=== PATIENT | female | born 1995 | race Caucasian/White ===

== ENCOUNTER 2017-03-12 22:33 | Emergency (ER) | payer MEDICAID ==
[~2017-03-12] VITALS: Ht 162.6 cm; Wt 48.1 kg
[2017-03-12 22:40] VITALS: BP_SYST 120
--- NOTE | 2017-03-12 23:12 | NUR ---
Patient AAOx4, ambulatory. No signs of respiratory distress noted. Patient states having pain to left side of chest since earlier today. Patient states pain scale 5/10 with a sharp sensation; patient also states that the pain does not radiate. Patient states pain is only present on inspiration, denies presence of pain on exhalation. Patient denies any other complaints at this time.
--- NOTE | 2017-03-12 23:12 | NUR ---
Placed in room 8 . Placed on flower shop manager, blood pressure machine and pulse oximeter. To gown for exam. Side rails up.
--- NOTE | 2017-03-12 23:20 | NUR ---
ER Dr. Hinojosa at bedside examining patient.
[2017-03-12 23:42] VITALS: BP_SYST 120
--- NOTE | 2017-03-12 23:42 | NUR ---
Patient given written and verbal discharge instructions and verbalizes understanding. ER MD discussed with patient the results and treatment provided. Patient in stable condition. ID arm band removed. Rx of naprosyn given. Patient educated on pain management and to follow up with PMD. Pain Scale 0/10. Opportunity for questions provided and answered.
== END 2017-03-12 23:42 | disposition home or self-care (01) ==
LOC: SED 22:33
DX: M94.0 Chondrocostal junction syndrome [Tietze] (principal)
CPT/HCPCS: 93005; 99283

== ENCOUNTER 2017-12-03 19:00 | Emergency (ER) | payer MEDICAID ==
[~2017-12-03] VITALS: Ht 162.6 cm; Wt 49.9 kg
[2017-12-03 19:00] VITALS: BP_SYST 163
[2017-12-03 20:05] VITALS: BP_SYST 114
== END 2017-12-03 20:05 | disposition home or self-care (01) ==
LOC: SED 19:00
DX: R45.851 Suicidal ideations (principal); F32.9 Major depressive disorder, single episode, unspecified; R03.0 Elevated blood-pressure reading, without diagnosis of hypertension
CPT/HCPCS: 99283

== ENCOUNTER 2018-08-14 03:17 | Emergency (ER) | payer MEDICAID ==
[~2018-08-14] VITALS: Ht 160 cm; Wt 46.3 kg
[2018-08-14 03:21] VITALS: BP_SYST 125
[2018-08-14 04:36] LABS: BASOPHILS # (AUTO) 0.1 K/uL (0.0-0.2); EOSINOPHILS # (AUTO) 0.1 K/uL (0.0-0.4); EOSINOPHILS % (AUTO) 1.4 % (0.0-4.0); HEMATOCRIT 37.1 % (36-48); HEMOGLOBIN 12.6 g/dL (12.0-16.0); LYMPHOCYTES # (AUTO) 2.7 K/uL (1.0-5.5); LYMPHOCYTES % (AUTO) 40.4 % (20.5-51.5); MEAN CORPUSCULAR HEMOGLOBIN 31 pg (27-31); MEAN CORPUSCULAR HGB CONC 34 % (32-36); MEAN CORPUSCULAR VOLUME 93 fL (79.0-98.0); MONOCYTES # (AUTO) 0.7 K/uL (0.0-1.0); MONOCYTES % (AUTO) 10.6 % (1.7-9.3); NEUTROPHILS # (AUTO) 3.1 K/uL (1.8-7.7); NEUTROPHILS % (AUTO) 46.6 % (40.0-70.0); PLATELET COUNT (AUTO) 244 K/uL (130-430); RED CELL DISTRIBUTION WIDTH 12.4 % (9.0-15.0); WHITE BLOOD COUNT (AUTO) 6.6 K/uL (4.8-10.8)
[2018-08-14 04:50] LABS: CALCIUM 9.2 mg/dL (8.4-11.0); CREATININE 0.69 mg/dL (0.55-1.30); POTASSIUM 3.4 mmol/L (3.5-5.1)
[2018-08-14 05:01] LABS: ALBUMIN 3.7 g/dL (3.4-4.8); TOTAL BILIRUBIN 0.8 mg/dL (0.0-1.0)
[2018-08-14 05:50] VITALS: BP_SYST 125
== END 2018-08-14 05:50 | disposition home or self-care (01) ==
LOC: SED 03:17
DX: R07.89 Other chest pain (principal); R68.84 Jaw pain; M79.602 Pain in left arm
CPT/HCPCS: 36415; 71046-TC; 80053; 81025; 84484; 85025; 93005; 99284

== ENCOUNTER 2019-01-14 10:07 | Emergency (ER) | payer MEDICAID ==
[~2019-01-14] VITALS: Ht 160 cm; Wt 45.4 kg
[2019-01-14 10:07] VITALS: BP_SYST 143
--- NOTE | 2019-01-14 10:07 | NUR ---
BROUGHT BACK TO BED #3 AND TRIAGED. REPORT GIVEN TO REANNA
--- NOTE | 2019-01-14 10:15 | NUR ---
Pt c/o metal rack hitting her head twice, states no pain currently. Pt states not losing consciousness but had n/v. No obvious deformities noted. No other complaints or injuries per pt or noted.
--- NOTE | 2019-01-14 10:30 | NUR ---
ER Dr. Briones at bedside examining patient.
[2019-01-14 11:10] VITALS: BP_SYST 143
--- NOTE | 2019-01-14 11:24 | NUR ---
Patient given written and verbal discharge instructions and verbalizes understanding. ER MD discussed with patient the results and treatment provided. Patient in stable condition. ID arm band removed. No Rx given. Patient educated on pain management and to follow up with PMD. Pain Scale 0/10. Opportunity for questions provided and answered. Medication side effect fact sheet provided.
== END 2019-01-14 11:24 | disposition home or self-care (01) ==
LOC: SED 10:07
DX: S09.90XA Unspecified injury of head, initial encounter (principal); W20.8XXA Other cause of strike by thrown, projected or falling object, initial encounter; Y93.89 Activity, other specified; Y92.69 Other specified industrial and construction area as the place of occurrence of the external cause; Y99.0 Civilian activity done for income or pay
CPT/HCPCS: 99281

== ENCOUNTER 2023-02-20 18:07 | Emergency (ER) | payer MEDICAID ==
[~2023-02-20] VITALS: Ht 160 cm; Wt 49.9 kg
[2023-02-20 18:10] VITALS: BP_SYST 105; PULSE 81; RESP 18; TEMP 97.5; O2SAT 98
[2023-02-20 19:05] LABS: BASOPHILS % (AUTO) 0.8 % (0.0-2.0); EOSINOPHILS # (AUTO) 0.1 K/uL (0.0-0.4); EOSINOPHILS % (AUTO) 1.4 % (0.0-4.0); HEMATOCRIT 37.9 % (36-48); HEMOGLOBIN 12.6 g/dL (12.0-16.0); LYMPHOCYTES % (AUTO) 36.3 % (20.5-51.5); MEAN CORPUSCULAR HEMOGLOBIN 30 pg (27-31); MEAN CORPUSCULAR HGB CONC 33 % (32-36); MEAN CORPUSCULAR VOLUME 91 fL (79.0-98.0); MONOCYTES # (AUTO) 0.6 K/uL (0.0-1.0); MONOCYTES % (AUTO) 11.1 % (1.7-9.3); NEUTROPHILS # (AUTO) 2.7 K/uL (1.8-7.7); NEUTROPHILS % (AUTO) 50.4 % (40.0-70.0); PLATELET COUNT (AUTO) 283 K/uL (130-430); RED BLOOD CELL COUNT(AUTO) 4.19 MIL/uL (4.2-6.2); RED CELL DISTRIBUTION WIDTH 12.6 % (9.0-15.0); WHITE BLOOD COUNT (AUTO) 5.4 K/uL (4.8-10.8)
[2023-02-20 19:16] LABS: CALCIUM 9.1 mg/dL (8.4-11.0); CREATININE 0.64 mg/dL (0.55-1.30); POTASSIUM 3.6 mmol/L (3.5-5.1)
[2023-02-20 19:21] LABS: ALBUMIN 3.6 g/dL (3.4-4.8); TOTAL BILIRUBIN 0.7 mg/dL (0.0-1.0); TOTAL PROTEIN, SERUM 6.8 g/dL (6.4-8.3)
[2023-02-20 21:11] LABS: BILIRUBIN,URINE NEGATIVE (NEGATIVE); BLOOD, URINE NEGATIVE (NEGATIVE); COLOR,URINE YELLOW (YELLOW); GLUCOSE,URINE NEGATIVE (NEGATIVE); KETONES,URINE NEGATIVE (NEGATIVE); LEUKOCYTE ESTERASE ,URINE NEGATIVE (NEGATIVE); NITRITE, URINE NEGATIVE (NEGATIVE); PROTEIN URINE NEGATIVE (NEGATIVE); UROBILINOGEN,URINE 0.2 (0.2-1.0)
[2023-02-20 21:42] LABS: CLARITY/URINE SLIGHTLY HAZY (CLEAR)
[2023-02-20] MEDS ORDERED: QUET50TA PO (21:59)
[2023-02-20] MEDS ORDERED: SERT-131 PO (21:59)
[2023-02-20 22:07] VITALS: BP_SYST 108; PULSE 79; RESP 18; TEMP 98; O2SAT 98
== END 2023-02-20 22:07 | disposition home or self-care (01) ==
LOC: SED 18:07
DX: R10.2 Pelvic and perineal pain (principal)
CPT/HCPCS: 36415; 76856-TC; 80053; 81001; 81003; 81025; 85025; 99284